=== PATIENT | male | born 2000 | race Hispanic/Latino ===

== ENCOUNTER → 2022-01-18 | Day surgery (SDC) | payer OTHER ==
[~2022-01-18] MED LIST: ACETAMINOPHEN/CODEINE 300MG - 30MG TAB ONE; CEPHALEXIN250 MG PO; DEXAMETHASONE SOD PHOS 10 MG/1 ML VIAL ONE; EPINEPHRINE HCL 1:1000 1ML 1 MG/ML AMP ONE; FENTANYL CITRATE/PF 100MCG/2 ML INJ ONE; LIDOCAINE 1% W/EPINEPHRINE 20 ML VIAL ONE; MIDAZOLAM HCL 2 MG/2 ML VIAL ONE; NAPROXEN250 MG PO; VALACYCLOVIR500 MG PO
[2022-01-18 11:30] VITALS: BP 121/80
== END | disposition home or self-care (01) ==
LOC: OR 07:04
PROVIDERS: ATTEND Otolaryngology Otolaryngology/Facial Plastic Surgery
DX: S02.2XXA Fracture of nasal bones, initial encounter for closed fracture (principal); J34.89 Other specified disorders of nose and nasal sinuses; J34.2 Deviated nasal septum; F17.290 Nicotine dependence, other tobacco product, uncomplicated; W16.022A Fall into swimming pool striking bottom causing other injury, initial encounter; Y93.11 Activity, swimming; Y99.8 Other external cause status; Z88.0 Allergy status to penicillin
CPT/HCPCS: 21320; 30520; 88300; C1713; J0171; J1100; J2250; J3010